=== PATIENT | female | born 1950 | race Caucasian/White ===

== ENCOUNTER 2023-04-22 12:59 | Emergency (ER) | payer MEDICARE, OTHER ==
[~2023-04-22] VITALS: Ht 167.6 cm; Wt 60.1 kg
[~2023-04-22 12:59] MED LIST: AMLODIPINE BESYL5 MG PO; ASPIRIN EC81 MG PO; CITALOPRAM HBR20 MG PO; DONEPEZIL HCL10 MG PO; LEVOTHYROXINE100 MCG PO
[2023-04-22] MEDS ORDERED: LOVASTATIN20 MG PO (13:22)
[2023-04-22] MEDS ORDERED: LEVOTHYROXINE88 MCG PO (13:22)
[2023-04-22 13:26] LABS: BASOPHILS 0.5 % (0-2); HEMATOCRIT 38.9 % (35.0-50.0); HEMOGLOBIN 13.2 g/dL (12.0-18.0); LYMPHOCYTES 24.3 % (24-44); MCH 29.2 (27-36); MCV 85.9 fl (81-99); MONOCYTES 6.2 % (0-12); PLATELET COUNT 281 K/uL (140-440); RBC 4.53 M/ul (4.3-5.7); RDW 13.6 (10.5-15.0)
[2023-04-22 13:37] LABS: ALBUMIN 4.1 g/dL (3.4-5.0); ALBUMIN/GLOBULIN RATIO 1.17 (1.1-2.4); ALKALINE PHOSPHATASE 82 U/L (46-116); ALT (SGPT) 14 U/L (14-59); ANION GAP 15.6 (7-21); AST (SGOT) 17 U/L (15-37); BILIRUBIN, TOTAL 0.6 ng/dL (0.2-1.0); BUN/CREATININE RATIO 18.42 (6.0-28.6); CALCIUM 9.1 mg/dL (8.5-10.1); CARBON DIOXIDE 25 mmol/L (21-32); CHLORIDE 105 mmol/L (98-107); CREATININE, SERUM 1.14 mg/dL (0.55-1.02); GLOMERULAR FILTRATION RATE,EST 51 mL/min (>60); MAGNESIUM 1.8 mg/dL (1.8-2.4); POTASSIUM 3.6 mmol/L (3.5-5.1); PROTEIN, TOTAL 7.6 g/dL (6.4-8.2); UREA NITROGEN 21 mg/dL (7-18)
[2023-04-22 14:11] LABS: BILIRUBIN, URINE NEGATIVE (negative); BLOOD/HGB, URINE SMALL (Negative); KETONE, URINE NEGATIVE (Negative); LEUK ESTERASE, URINE SMALL (negative); NITRITE, URINE POSITIVE (negative)
[2023-04-22 14:19] LABS: BACTERIA, URINE 4+ /hpf (negative); CASTS, URINE NONE SEEN \\lpf; COLLECTION TYPE, URINE CLEAN CATCH; CRYSTALS, URINE NONE SEEN (0-1+); EPITHELIAL CELLS, URINE SQUAMOUS 3+ /lpf (0-1+); REFLEX CULTURE, URINE No (No)
[2023-04-22] MEDS ORDERED: CEFDINIR300 MG PO (15:25)
[2023-04-22] MEDS ORDERED: ONDANSETRON ODT8 MG PO (15:26)
[2023-04-22 16:44] VITALS: BP 101/88
--- NOTE | 2023-04-23 22:24 | EKG ---
[facility] [address] [place], [place] [address] Signed Normal sinus rhythm Right bundle branch block Abnormal ECG No previous ECGs available Confirmed by AIMEE CLEMONS MD ([id number]) on 04/23/2023 10:23:39 PM Electronically Signed By: AIMEE CLEMONS 04/23/232223 PATIENT NAME: WILSON VELASQUEZ Salome Electrocardiogram DATE OF : 52 PHYSICIAN: AIMEE CLEMONS REPORT #: [id number] REPORT IS CONFIDENTIAL AND NOT TO BE RELEASED WITHOUT AUTHORIZATION
== END 2023-04-22 16:33 | disposition home or self-care (01) ==
LOC: ED 12:59
PROVIDERS: Family Medicine
DX: N39.0 Urinary tract infection, site not specified (principal); R13.0 Aphagia; R47.01 Aphasia; Z87.891 Personal history of nicotine dependence; Z79.82 Long term (current) use of aspirin; Z79.899 Other long term (current) drug therapy
CPT/HCPCS: 36415; 70450; 71045; 80053; 81001; 83735; 84484; 85025; 93005; 93010; 96374; 99285-25; J2405